=== PATIENT | male | born 1955 | race Caucasian/White ===

== ENCOUNTER 2020-04-10 16:37 | Emergency (ER) | payer BC, OTHER ==
--- OUTSIDE RECORDS SUMMARY | 2020-04-10 16:39 | XMS REPORT | Continuity of Care Document ---
:1955 Author Organization [facility] t Address [address] [place] [address] Dr. Gupta [address] [place] [address] Care Team Providers Name Role Phone Malik CARRANZA Attending Clinician Lab, Fam Pob I Attending Clinician Unavailable Problems This patient has no known problems. Allergies, Adverse Reactions, Alerts This patient has no known allergies or adverse reactions. Medications This patient has no known medications. Procedures This patient has no known procedures. Encounters Start End Encounter Admission Attending Care Care Encounter Source Date/Time Date/Time Type Type Clinicians Facility Department ID 2019-12-20 2019-12-20 Telephone Malik [facility] [id number] 00:00:00 00:00:00 [facility] [id number] [place] [id number] Professio [phone] [address] 2019-12-19 2019-12-19 Laboratory Lab, [facility] [id number] 09:25:55 09:45:55 Only Fam Pob I [facility] [id number] [place] [id number] Professio [phone] [address] Results This patient has no known results.
[2020-04-10] MEDS ORDERED: KETOROLAC 30 MG/ML INJ ONE (17:03)
[2020-04-10] MEDS ORDERED: TETANUS & DIPHTHERIA TOX,ADULT 0.5 ML VIAL ONE (17:03)
--- NOTE | 2020-04-10 17:13 | RAD REPORT ---
EXAM DESCRIPTION: CT - CTHCSPWOC - 04/10/2020 5:03 pm CLINICAL HISTORY: Trauma, head and neck injury. PAIN COMPARISON: No comparisons TECHNIQUE: Axial 5 mm thick images of the head were obtained. Axial 2 mm thick images of the cervical spine were obtained with sagittal and coronal reconstruction images generated and reviewed. All CT scans are performed using dose optimization technique as appropriate and may include automated exposure control or mA/KV adjustment according to patient size. FINDINGS: CT HEAD WITHOUT CONTRAST: No acute hemorrhage, hydrocephalus or extra-axial collection is identified.No areas of brain edema or midline shift. The paranasal sinuses and mastoids are clear.The calvarium is intact. CT CERVICAL SPINE WITHOUT CONTRAST: No fracture or subluxation.Mild lower cervical degenerative changes.No prevertebral soft tissues swel ling is identified. IMPRESSION: No acute intracranial or cervical spine findings.
--- NOTE | 2020-04-10 17:21 | RAD REPORT ---
EXAM DESCRIPTION: RAD - Ankle Left 3 View - 04/10/2020 5:14 pm CLINICAL HISTORY: PAIN COMPARISON: No comparisons FINDINGS: Mild soft tissue swelling is seen about the ankle. Mild arthritic changes are evident. No acute fracture or dislocation seen. Large calcaneal spurs.
--- NOTE | 2020-04-10 17:21 | RAD REPORT ---
EXAM DESCRIPTION: RAD - Shoulder Right 2 View - 04/10/2020 5:16 pm CLINICAL HISTORY: PAIN COMPARISON: No comparisons FINDINGS: Mild AC joint and glenohumeral joint arthritic changes are present. No acute fracture or d islocation seen. No aggressive marrow lesion.
--- NOTE | 2020-04-10 17:26 | EDPHYS ---
Physician Documentation [facility] Name: Luca Ayon Age: 65 yrs Sex: Male : 1955 Arrival Date: 04/10/2020 Time: 16:40 Bed 20 Private MD: Rai Goodrich H ED Physician Augustin Candelario HPI: 04/10 16:55 This 65 yrs old Male presents to ER via Wheelchair with complaints of Fall kb Injury. 16:55 Details of fall: The patient fell from a height, from a ladder, approximately 4 feet. kb Onset: The symptoms/episode began/occurred today. Associated injuries: The patient sustained injury to the head, hematoma, neck injury, pain, pain with movement, left lateral ankle, painful injury, swelling, anterior aspect of right shoulder, decreased range of motion, painful injury. Severity of symptoms: At their worst the symptoms were moderate, in the emergency department the symptoms are unchanged. The patient has not experienced similar symptoms in the past. The patient has not recently seen a physician. Pt reports he fell off of a ladder approx 4 feet. States he continued working for a while, but his shoulder was hard to move so he was concerned that it was dislocated. Reports he noticed a hematoma on his head and his neck was a little sore. Reports slight pain to left ankle as well. Historical: - Allergies: 16:49 Sulfa (Sulfonamide Antibiotics); jd3 - Home Meds: 16:49 Aciphex Oral [Active]; jd3 - PMHx: 16:49 GERD; jd3 - PSHx: 16:49 Cholecystectomy; jd3 - Immunization history:: Adult Immunizations up to date. - Social history:: Smoking status: Patient denies any tobacco usage or history of. ROS: 16:54 Constitutional: Negative for fever, chills, and weight loss, Eyes: Negative for injury, kb pain, redness, and discharge, ENT: Negative for injury, pain, and discharge, Cardiovascular: Negative for chest pain, palpitations, and edema, Respiratory: Negative for shortness of breath, cough, wheezing, and pleuritic chest pain, Abdomen/GI: Negative for abdominal pain, nausea, vomiting, diarrhea, and constipation, Neuro: Negative for headache, weakness, numbness, tingling, and seizure. 16:54 Neck: Positive for pain with movement, pain at rest. 16:54 MS/extremity: Positive for decreased range of motion, pain, of the anterior aspect of right shoulder. Exam: 16:49 Constitutional: This is a well developed, well nourished patient who is awake, alert, kb and in no acute distress. Eyes: Pupils equal round and reactive to light, extra-ocular motions intact. Lids and lashes normal. Conjunctiva and sclera are non-icteric and not injected. Cornea within normal limits. Periorbital areas with no swelling, redness, or edema. ENT: Nares patent. No nasal discharge, no septal abnormalities noted. Tympanic membranes are normal and external auditory canals are clear. Oropharynx with no redness, swelling, or masses, exudates, or evidence of obstruction, uvula midline. Mucous membranes moist. Chest/axilla: Normal chest wall appearance and motion. Nontender with no deformity. No lesions are appreciated. Cardiovascular: Regular rate and rhythm with a normal S1 and S2. No gallops, murmurs, or rubs. Normal PMI, no JVD. No pulse deficits. Respiratory: Lungs have equal breath sounds bilaterally, clear to auscultation and percussion. No rales, rhonchi or wheezes noted. No increased work of breathing, no retractions or nasal flaring. Abdomen/GI: Soft, non-tender, with normal bowel sounds. No distension or tympany. No guarding or rebound. No evidence of tenderness throughout. Back: No spinal tenderness. No costovertebral tenderness. Full range of motion. Neuro: Awake and alert, GCS 15, oriented to person, place, time, and situation. Cranial nerves II-XII grossly intact. Motor strength 5/5 in all extremities. Sensory grossly intact. Cerebellar exam normal. Normal gait. 16:49 Head/face: Noted is no obvious of injury or deformity except hematoma, that is mild, of the left side of the back of head. 16:49 Neck: External neck: is normal, C-spine: appears grossly normal. 16:49 Musculoskeletal/extremity: Extremities: grossly normal except: noted in the anterior aspect of right shoulder: decreased ROM, pain, noted in the left lateral ankle: pain, swelling, ROM: intact in all extremities, Circulation is intact in all extremities. Sensation intact. Weight bearing: able to fully bear weight. 16:49 Skin: injury, abrasion(s), small abrasion noted, moderate sized abrasion noted, of the lateral aspect of right calf and right knee. Vital Signs: 16:49 BP 129 / 91; Pulse 100; Resp 17 S; Temp 99.2(TE); Pulse Ox 100% on R/A; Weight 120.2 kg jd3 (R); Height 5 ft. 8 in. (172.72 cm) (R); Pain 6/10; 17:22 BP 133 / 81; Pulse 93; Resp 16; Pulse Ox 98% ; bp 16:49 Body Mass Index 40.29 (120.20 kg, 172.72 cm) jd3 MDM: 16:45 Patient medically screened. kb 16:49 Data reviewed: vital signs, nurses notes. Data interpreted: Pulse oximetry: on room air kb is 100 %. Interpretation: normal. 17:24 Counseling: I had a detailed discussion with the patient and/or guardian regarding: the kb historical points, exam findings, and any diagnostic results supporting the discharge/admit diagnosis, radiology results, the need for outpatient follow up, a family practitioner, to return to the emergency department if symptoms worsen or persist or if there are any questions or concerns that arise at home. 04/10 16:49 Order name: CT Head C Spine; Complete Time: 17:15 kb 04/10 16:49 Order name: Ankle Left 3 View XRAY; Complete Time: 17:23 kb 04/10 16:49 Order name: Shoulder Right (2 View) XRAY; Complete Time: 17:23 kb Administered Medications: 16:54 Drug: Tetanus-Diphtheria Toxoid Adult 0.5 ml {Die Operator: SaniHandle Pasteur. Exp: bp 08/13/2022. Lot #: [id number]. } Route: IM; Site: right vastus lateralis; 17:38 Follow up: Response: No adverse reaction bp 16:54 Drug: TORadol 30 mg Route: IM; Site: right vastus lateralis; bp 17:38 Follow up: Response: Pain is decreased bp Disposition: 04/10/20 17:25 Discharged to Home. Impression: Pain in right shoulder, Pain in left ankle and joints of left foot, Fall on and from ladder, Superficial injury of head. - Condition is Stable. - Discharge Instructions: Musculoskeletal Pain, Shoulder Pain, Chet-jy-Lbnm, Head Injury, Adult, Tomd-cd-Srcn. - Prescriptions for Ibuprofen 800 mg Oral Tablet - take 1 tablet by ORAL route every 8 hours As needed take with food; 30 tablet. Cyclobenzaprine 10 mg Oral Tablet - take 1 tablet by ORAL route every 8 hours As needed; 21 tablet. - Medication Reconciliation Form, Thank You Letter, Antibiotic Education, Prescription Opioid Use form. - Follow up: Emergency Department; When: As needed; Reason: Worsening of condition. Follow up: Rai Goodrich DO; When: 2 - 3 days; Reason: Recheck today's complaints, Continuance of care, Re-evaluation by your physician. Addendum: 04/12/2020 21:45 Co-signature as Attending Physician, Augustin Candelario MD. r n Signatures: Dispatcher [employer] EDMS Abby Mena, ORNAMENTAL PLASTER STICKER-C ORNAMENTAL PLASTER STICKER-Ckb Augustin Candelario MD MD rn Davies, Jonathon, RN RN Toni Wright RN RN bp Corrections: (The following items were deleted from the chart) 04/10 17:38 17:25 04/10/2020 17:25 Discharged to Home. Impression: Pain in right shoulder; Pain in bp left ankle and joints of left foot; Fall on and from ladder; Superficial injury of head. Condition is Stable. Forms are Medication Reconciliation Form, Thank You Letter, Antibiotic Education, Prescription Opioid Use. Follow up: Emergency Department; When: As needed; Reason: Worsening of condition. Follow up: aRi Goodrich; When: 2 - 3 days; Reason: Recheck today's complaints, Continuance of care, Re-evaluation by your physician. kb
--- NOTE | 2020-04-10 17:26 | ER ---
Nurse's Notes [facility] Name: Luca Ayon Age: 65 yrs Sex: Male : 1955 Arrival Date: 04/10/2020 Time: 16:40 Bed 20 Private MD: Rai Goodrich H Diagnosis: Pain in right shoulder;Pain in left ankle and joints of left foot;Fall on and from ladder;Superficial injury of head Presentation: 04/10 16:47 Chief complaint: Patient states: "I fell off of a ladder, only about 4-5 feet and jd3 scraped up my right leg. I also think I popped my right shoulder out of socket. I hit my head, but I did not loose consciousness. my left ankle and my neck is hurting me as well.". Coronavirus screen: At this time, the client does not indicate any symptoms associated with coronavirus-19. Ebola Screen: Patient negative for fever greater than or equal to 101.5 degrees Fahrenheit, and additional compatible Ebola Virus Disease symptoms. Initial Sepsis Screen: Does the patient meet any 2 criteria? No. Patient's initial sepsis screen is negative. Does the patient have a suspected source of infection? No. Patient's initial sepsis screen is negative. Risk Assessment: Do you want to hurt yourself or someone else? Patient reports no desire to harm self or others. Onset of symptoms was April 10, 2020. 16:47 Method Of Arrival: Wheelchair jd3 16:47 Acuity: HAIR 3 jd3 Triage Assessment: 16:50 General: Appears in no apparent distress. uncomfortable, obese, Behavior is bp cooperative, appropriate for age, anxious. Pain: Complains of pain in left leg and right arm and right leg and right knee and left side of the back of head. EENT: No deficits noted. Neuro: Level of Consciousness is awake, alert, obeys commands, Oriented to Appropriate for age. Cardiovascular: No deficits noted. Respiratory: No deficits noted. GI: No signs and/or symptoms were reported involving the gastrointestinal system. : No signs and/or symptoms were reported regarding the genitourinary system. Derm: No deficits noted. Musculoskeletal: Reports pain in left leg and right arm and right leg and right knee and left side of the back of head. Injury Description: Abrasion sustained to left leg and right leg. Historical: - Allergies: 16:49 Sulfa (Sulfonamide Antibiotics); jd3 - Home Meds: 16:49 Aciphex Oral [Active]; jd3 - PMHx: 16:49 GERD; jd3 - PSHx: 16:49 Cholecystectomy; jd3 - Immunization history:: Adult Immunizations up to date. - Social history:: Smoking status: Patient denies any tobacco usage or history of. Screenin:50 Abuse screen: Denies threats or abuse. Denies injuries from another. Nutritional bp screening: No deficits noted. Tuberculosis screening: No symptoms or risk factors identified. Fall Risk None identified. Assessment: 16:50 General: SEE TRIAGE NOTE. bp 16:57 Reassessment: PT TO RADIOLOGY. bp 17:21 Reassessment: Patient appears in no apparent distress at this time. No changes from bp previously documented assessment. Patient and/or family updated on plan of care and expected duration. Pain level reassessed. Patient is alert, oriented x 3, equal unlabored respirations, skin warm/dry/pink. PT RETURNED FROM [facility]. 17:37 Reassessment: PT D/C HOME AMBULATORY, DX WITH SHOULDER PAIN S/P FALL. bp Vital Signs: 16:49 BP 129 / 91; Pulse 100; Resp 17 S; Temp 99.2(TE); Pulse Ox 100% on R/A; Weight 120.2 kg jd3 (R); Height 5 ft. 8 in. (172.72 cm) (R); Pain 6/10; 17:22 BP 133 / 81; Pulse 93; Resp 16; Pulse Ox 98% ; bp 16:49 Body Mass Index 40.29 (120.20 kg, 172.72 cm) jd3 ED Course: 16:40 Patient arrived in ED. ag5 16:40 Rai Goodrich DO is Private Physician. ag5 16:42 Toni Moseley, BRIAN is Primary Nurse. bp 16:45 Abby Mena FNP-C is PHCP. kb 16:45 Augustin Candelario MD is Attending Physician. kb 16:48 Triage completed. jd3 16:50 Arm band placed on. jd3 16:50 Patient has correct armband on for positive identification. Bed in low position. Call bp light in reach. Side rails up X2. 17:03 CT Head C Spine In Process Unspecified. EDMS 17:14 Ankle Left 3 View XRAY In Process Unspecified. EDMS 17:15 Shoulder Right (2 View) XRAY In Process Unspecified. EDMS 17:24 Rai Goodrich DO is Referral Physician. kb 17:37 No provider procedures requiring assistance completed. Patient did not have IV access bp during this emergency room visit. Administered Medications: 16:54 Drug: Tetanus-Diphtheria Toxoid Adult 0.5 ml {Lehr Loader: MENABANQER Pasteur. Exp: bp 08/13/2022. Lot #: [id number]. } Route: IM; Site: right vastus lateralis; 17:38 Follow up: Response: No adverse reaction bp 16:54 Drug: TORadol 30 mg Route: IM; Site: right vastus lateralis; bp 17:38 Follow up: Response: Pain is decreased bp Outcome: 17:25 Discharge ordered by MD. kb 17:37 Discharged to home ambulatory. bp 17:37 Condition: stable 17:37 Discharge instructions given to patient, Instructed on discharge instructions, follow up and referral plans. medication usage, Demonstrated understanding of instructions, follow-up care, medications, Prescriptions given X 2. 17:38 Patient left the ED. bp Signatures: Dispatcher [employer] EDMS Abby Mena, CELERY WRAPPER-C CELERY WRAPPER-Ciro Dominguez RN RN jd3 Peltier, Brian, RN RN Neel Mishra ag5 Corrections: (The following items were deleted from the chart) 16:51 16:47 Chief complaint: Patient states: "I fell off of a ladder and scraped up my right jd3 leg. I also think I popped my right shoulder out of socket. I hit my head, but I did not loose consciousness. my left ankle and my neck is hurting me as well." jd3
[2020-04-10 17:46] VITALS: TEMP 99.2
[2020-04-10 17:48] VITALS: BP 133/81; O2SAT 98
== END 2020-04-10 17:38 | disposition home or self-care (01) ==
LOC: ER 16:37
DX: M25.511 Pain in right shoulder (principal); S00.93XA Contusion of unspecified part of head, initial encounter; M25.572 Pain in left ankle and joints of left foot; W11.XXXA Fall on and from ladder, initial encounter; Y93.9 Activity, unspecified; Y92.9 Unspecified place or not applicable; Z23 Encounter for immunization; Z88.2 Allergy status to sulfonamides; K21.9 Gastro-esophageal reflux disease without esophagitis
CPT/HCPCS: 70450; 72125; 90471; 90714; 96372; 99283

== ENCOUNTER 2022-05-01 16:34 | Inpatient (IN) | payer BC, OTHER ==
--- OUTSIDE RECORDS SUMMARY | 2022-05-01 16:37 | XMS REPORT | Continuity of Care Document ---
:1955 Author Organization [facility] t Address [address] [place] [address] Care Team Providers Name Role Phone Lab, Adc Fam Pob I Attending Clinician Unavailable Teena ALUMINUM SIDING INSTALLERJudy Attending Clinician JUDY DICKINSON Attending Clinician Unavailable Malik ALUMINUM SIDING INSTALLERIvelisse Attending Clinician Ebmarisol ALUMINUM SIDING INSTALLERTroy Attending Clinician TROY HARDING Attending Clinician Unavailable Payers Payer Name Policy Type Policy Number Effective Date Expiration Date S ource Problems This patient has no known problems. Allergies, Adverse Reactions, Alerts Allergy Allergy Status Severity Reaction(s) Onset Inactive Treating Comm ents Source Name Type Date Date Clinician NO KNOWN Drug Active [facility] ALLERGIE Class ity of S [facility] Social History Social Habit Start Date Stop Date Quantity Comments Source Exposure to Yes [facility] SARS-CoV-2 (event) Medica l Branch Sex Assigned At [birth year] [facility] 00:00:00 00:00:00 [facility] Smoking Status Start Date Stop Date Source Unknown if ever smoked [facility] Medications This patient has no known medications. Procedures This patient has no known procedures. Encounters Start End Encounter Admission Attending Care Care Encounter Source Date/Time Date/Time Type Type Clinicians Facility Department ID 2021-07-19 Outpatient [facility] [id number] Common 14:31:02 [facility] 2021-01-23 2021-01-23 Laboratory Lab, [facility] Fam Pob I [facility] [id number] [facility] 09:54:24 10:14:24 Only u[facility]dy [facility] [id number] [facility] [place] [id number] [facility] as Professio [phone] [address] 2021-01-23 2021-01-23 Outpatient R [facility] [id number] Univers 10:00:00 10:00:00 JUDY mueller o f [facility] 2019-12-20 2019-12-20 Telephone [facility] [id number] [facility] 00:00:00 00:00:00 [facility] [id number] [facility] [place] [id number] [facility] Professio [phone] [address] 2019-12-20 2019-12-20 [place] [facility] [id number] 00:00:00 00:00:00 [facility] [id number] [place] [id number] Professio [phone] [place] [address] [address] 2019-12-19 2019-12-19 Laboratory Lab, [facility] Fam Pob I [facility] [id number] [facility] 09:25:55 09:45:55 Only [facility] [id number] [facility] [place] [id number] И[facility]ан as Professio [phone] [address] 2019-12-19 2019-12-19 Laboratory Lab, [facility] [id number] 09:25:55 09:45:55 Only Fam Pob I Health [id number] [place] [id number] Professio [phone] [place] [address] [address] 2019-12-19 2019-12-19 Outpatient [facility] [id number] Univers 09:40:00 09:40:00 RANIA ity [facility] Results This patient has no known results.
[2022-05-01] MEDS ORDERED: FAMOTIDINE 20 MG/2 ML VIAL IV ONE (17:18)
[2022-05-01] MEDS ORDERED: NA CHLORIDE 0.9% 500 ML ONE ×2 (17:18→19:32)
[2022-05-01] MEDS ORDERED: ONDANSETRON 4 MG/2 ML VIAL ONE (17:18)
[2022-05-01 17:35] LABS: Absolute Lymphocytes (CBC) 0.7 K/uL (0.7-4.9); Hematocrit 42.3 % (39.6-49.0); Lymphocytes % 4.7 % (15.3-44.8); MCV 78.2 fL (80-100); MPV 8.3 fL (7.6-11.3); Protime INR 1.35; RBC Red Blood Cell Count 5.41 M/uL (4.33-5.43)
[2022-05-01 17:47] LABS: Albumin 3.5 g/dL (3.4-5.0); Bilirubin Direct 0.2 mg/dL (0-0.2); Bilirubin Total 0.8 mg/dL (0.2-1.0); Magnesium 3.3 mg/dL (1.8-2.4); Potassium 3.4 mmol/L (3.5-5.1); Protein, Total 8.3 g/dL (6.4-8.2)
[2022-05-01 18:00] LABS: Urine Blood Trace-lysed (Negative); Urine Glucose Negative (Negative); Urine Protein 2+ (Negative); Urine Specific Gravity >=1.030 (1.005-1.030); Urine pH 5.5 (5.0-7.0)
--- NOTE | 2022-05-01 18:04 | RAD REPORT ---
EXAM DESCRIPTION: RAD - Chest Single View - 05/01/2022 5:40 pm CLINICAL HISTORY: CHEST PAIN Chest pain. COMPARISON: No comparisons FINDINGS: Portable technique limits examination quality. Mild asymmetric pulmonary opacities are present, greater in the left lung and left lung base. This ma y represent asymmetric pulmonary edema or developing left-sided infection/pneumonia. The heart is nor mal in size. No displaced fractures.
[2022-05-01 18:10] LABS: Urine Bacteria <20 /HPF (<20); Urine Granular Casts >20 /LPF (None Seen); Urine Mucus 2+ /HPF (None Seen)
[2022-05-01 18:12] LABS: SARS-COV-2 RT PCR NEGATIVE (NEGATIVE)
--- NOTE | 2022-05-01 18:43 | RAD REPORT ---
EXAM DESCRIPTION: CT - Chest Abd Pelvis Wo Con - 05/01/2022 6:33 pm CLINICAL HISTORY: Chest and abdomen pain. vomiting COMPARISON: No comparisons TECHNIQUE: A limited noncontrast study was performed. All CT scans are performed using dose optimization technique as appropriate and may include automated exposure control or mA/KV adjustment according to patient size. FINDINGS: Bilateral mild ground-glass and alveolar lung opacities are seen, greater on the left.No p leural or pericardial effusion.No intrathoracic adenopathy.Postsurgical changes affect the stomach. C holecystectomy. The liver, spleen, pancreas, adrenal glands and kidneys are within normal limits. No bowel obstruction, free air, free fluid or abscess. Normal appendix. Sigmoid diverticulosis coli i s present without diverticulitis. No pathologic lymphadenopathy in the abdomen or pelvis. No worrisome osseous finding. IMPRESSION: Alveolar lung opacities are present both lungs, greatest in the left lower lobe suspicio us for infection/pneumonia.
--- NOTE | 2022-05-01 18:55 | ER ---
Nurse's Notes [facility] Name: Luca Ayon Age: 67 yrs Sex: Male : 1955 Arrival Date: 05/01/2022 Time: 16:38 Bed 27 Private MD: Rai Goodrich H Diagnosis: Other pneumonia, unspecified organism;Other injury of unspecified kidney, initial encounter;Sepsis, unspecified organism;Nausea with vomiting, unspecified Presentation: 05/01 16:40 Chief complaint: Patient states: been vomiting since Saturday, and SOB. Saw Keanu today [facility] and was told to come on it. Coronavirus screen: Vaccine status: Patient reports receiving the 2nd dose of the covid vaccine. Client denies travel out of the [place] in the last 14 days. Ebola Screen: Patient negative for fever greater than or equal to 101.5 degrees Fahrenheit, and additional compatible Ebola Virus Disease symptoms Patient denies exposure to infectious person. Patient denies travel to an Ebola-affected area in the 21 days before illness onset. Initial Sepsis Screen: Does the patient meet any 2 criteria? No. Patient's initial sepsis screen is negative. Does the patient have a suspected source of infection? No. Patient's initial sepsis screen is negative. Risk Assessment: Do you want to hurt yourself or someone else? Patient reports no desire to harm self or others. 16:40 Method Of Arrival: Ambulatory [facility] 16:40 Acuity: HAIR 3 [facility] 16:54 Onset of symptoms is unknown. tp1 Triage Assessment: 16:42 General: Appears uncomfortable, obese, well groomed, well developed, Behavior is calm, jh5 cooperative, appropriate for age. Pain: Complains of pain in abdomen. Respiratory: Reports shortness of breath air hunger labored breathing Onset: The symptoms/episode began/occurred gradually, the patient has mild shortness of breath. Historical: - Allergies: 16:42 Sulfa (Sulfonamide Antibiotics); jh5 - PMHx: 16:42 GERD; 5 - Immunization history:: Adult Immunizations up to date. - Social history:: Smoking status: Patient denies any tobacco usage or history of. Screenin:54 Abuse screen: Denies threats or abuse. Denies injuries from another. Nutritional tp1 screening: No deficits noted. Tuberculosis screening: No symptoms or risk factors identified. Fall Risk None identified. Assessment: 16:52 General: Appears in no apparent distress. comfortable, Behavior is calm, cooperative. tp1 Pain: Complains of pain in abdomen and chest Pain does not radiate. Pain currently is 5 out of 10 on a pain scale. Quality of pain is described as aching. Neuro: Level of Consciousness is awake, alert, obeys commands, Oriented to person, place, time, situation. Cardiovascular: Patient's skin is warm and dry. Respiratory: Airway is patent Respiratory effort is even, unlabored. Respiratory: Reports cough that is. GI: Abdomen is obese, Abd is soft and non tender Reports nausea, vomiting, Patient currently denies diarrhea. : No signs and/or symptoms were reported regarding the genitourinary system. EENT: No signs and/or symptoms were reported regarding the EENT system. Derm: Skin is pink, warm \T\ dry. Musculoskeletal: Circulation, motion, and sensation intact. 17:50 Reassessment: Patient appears in no apparent distress at this time. No changes from tp1 previously documented assessment. Patient and/or family updated on plan of care and expected duration. Pain level reassessed. Patient is alert, oriented x 3, equal unlabored respirations, skin warm/dry/pink. no change in pain. 17:50 Cardiovascular: Rhythm is sinus bradycardia. tp1 19:15 Reassessment: Patient appears in no apparent distress at this time. No changes from iw previously documented assessment. Patient is alert, oriented x 3, equal unlabored respirations, skin warm/dry/pink. Patient denies pain at this time. 20:27 Reassessment: Patient appears in no apparent distress at this time. No changes from iw previously documented assessment. Patient and/or family updated on plan of care and expected duration. Pain level reassessed. Patient is alert, oriented x 3, equal unlabored respirations, skin warm/dry/pink. Patient denies pain at this time. 20:31 Reassessment: attempted to give report. tp1 21:18 Reassessment: report given to Jamal TORRES. tp1 Vital Signs: 16:40 BP 117 / 83; Pulse 128; Resp 22; Temp 97.9; Pulse Ox 97% ; Weight 90.72 kg; Height 5 jh5 ft. 8 in. (172.72 cm); 17:50 BP 156 / 85; Pulse 95; Resp 20; Pulse Ox 97% on R/A; tp1 18:10 BP 127 / 68; Pulse 101; Resp 16; Pulse Ox 98% on R/A; iw 19:36 BP 140 / 69; Pulse 92; Resp 16; Pulse Ox 100% on R/A; iw 20:29 BP 147 / 78; Pulse 74; Resp 16; Pulse Ox 98% on R/A; iw 16:40 Body Mass Index 30.41 (90.72 kg, 172.72 cm) [facility] ED Course: 16:38 Patient arrived in ED. rg4 16:38 Rai Goodrich DO is Private Physician. rg4 16:39 Natalio Mejia PA is PHCP. cp 16:39 Augustin Candelario MD is Attending Physician. cp 16:42 Triage completed. 5 16:42 Arm band placed on right wrist. 5 16:46 Elli Mock, BRIAN is Primary Nurse. tp1 16:54 Patient has correct armband on for positive identification. Bed in low position. Call tp1 light in reach. 17:15 COVID swab sent to lab. Flu and/or RSV swab sent to lab. Inserted saline lock: 20 gauge tp1 in right antecubital area, using aseptic technique. Blood collected. 17:43 XRAY Chest (1 view) In Process Unspecified. EDMS 18:35 CT Chest Abdomen Pelvis W/O Contrast In Process Unspecified. EDMS 18:53 Thad Jones MD is Hospitalizing Provider. cp 18:55 Franky Candelario MD is Hospitalizing Provider. cp 20:27 No provider procedures requiring assistance completed. Patient admitted, IV remains in iw place. Administered Medications: 17:24 Drug: Zofran (Ondansetron) 4 mg Route: IVP; Site: right antecubital; tp1 19:41 Follow up: Response: Nausea is decreased iw 17:26 Drug: Pepcid (famotidine) 20 mg Route: IVP; Site: right antecubital; tp1 19:41 Follow up: Response: Pain is decreased iw 17:27 Drug: NS 0.9% 500 ml Route: IV; Rate: bolus; Site: right antecubital; tp1 18:19 Follow up: IV Status: Completed infusion; IV Intake: 500ml tp1 19:41 Drug: Rocephin - (cefTRIAXone) 1 grams Route: IVPB; Infused Over: 30 mins; Site: right iw antecubital; 20:10 Follow up: Response: No adverse reaction; IV Status: Completed infusion; IV Intake: 50mliw 19:41 Drug: NS 0.9% 500 ml Route: IV; Rate: bolus; Site: right antecubital; iw 20:37 Follow up: IV Status: Completed infusion; IV Intake: 500ml tp1 20:10 Drug: Zithromax (azithromycin) 500 mg Route: IVPB; Infused Over: 1 hrs; Site: right iw antecubital; 21:20 Follow up: Response: No adverse reaction; IV Status: Completed infusion; IV Intake: tp1 250ml 20:37 Drug: NS 0.9% 1000 ml Route: IV; Rate: 100 ml/hr; Site: right antecubital; tp1 21:20 Follow up: IV Status: Infusion continued upon admission tp1 Medication: 16:54 VIS not applicable for this client. tp1 Intake: 18:19 IV: 500ml; Total: 500ml. tp1 20:10 IV: 50ml; Total: 550ml. iw 20:37 IV: 500ml; Total: 1050ml. tp1 21:20 IV: 250ml; Total: 1300ml. tp1 Outcome: 18:55 Decision to Hospitalize by Provider. cp 21:40 Admitted to Med/surg accompanied by nurse, via wheelchair, room 232, with chart. iw 21:40 Condition: good 21:40 Discharge instructions given to patient, Instructed on the need for admit, Demonstrated understanding of instructions. 21:41 Patient left the ED. iw Signatures: Dispatcher [employer] EDRosy Tolentino RN RN Natalio Gardner PA PA cp Garcia, Rubi rg4 Margaux Grossman RN RN jh5 Elli Mock RN RN tp1
--- NOTE | 2022-05-01 18:55 | EDPHYS ---
Physician Documentation [facility] Name: Luca Ayon Age: 67 yrs Sex: Male : 1955 Arrival Date: 05/01/2022 Time: 16:38 Bed 27 Private MD: Rai Goodrich H ED Physician Augustin Candelario HPI: 05/01 17:00 This 67 yrs old Male presents to ER via Ambulatory with complaints of Breathing cp Difficulty. 17:00 The patient has shortness of breath at rest. Onset: The symptoms/episode began/occurred cp today. The patient presents to the emergency department with nausea, that is mild, vomiting, that is continuous, described as bilious. Onset: The symptoms/episode began/occurred 3 day(s) ago. 17:00 Possible causes: unknown. cp Historical: - Allergies: 16:42 Sulfa (Sulfonamide Antibiotics); jh5 - PMHx: 16:42 GERD; jh5 - Immunization history:: Adult Immunizations up to date. - Social history:: Smoking status: Patient denies any tobacco usage or history of. ROS: 17:05 Constitutional: Negative for fever. cp 17:05 Cardiovascular: Negative for chest pain, edema, palpitations. cp 17:05 Eyes: Negative for injury, pain, redness, and discharge. cp 17:05 ENT: Negative for drainage from ear(s), ear pain, difficulty swallowing, difficulty handling secretions. 17:05 Respiratory: Positive for cough, shortness of breath, Negative for wheezing. 17:05 Abdomen/GI: Positive for nausea and vomiting, Negative for abdominal pain, diarrhea, constipation, anorexia, black/tarry stool, rectal bleeding. 17:05 : Negative for urinary symptoms. 17:05 Neuro: Negative for altered mental status, dizziness, headache, weakness. 17:05 All other systems are negative. Exam: 17:10 ECG was reviewed by the Attending Physician. cp 17:12 Constitutional: The patient appears in no acute distress, alert, awake, cp non-diaphoretic, non-toxic, well developed, well nourished. 17:12 Head/Face: Normocephalic, atraumatic. cp 17:12 Eyes: Periorbital structures: appear normal, Conjunctiva: normal, no exudate, no injection, Sclera: no appreciated abnormality, Lids and lashes: appear normal, bilaterally. 17:12 ENT: External ear(s): are unremarkable, Nose: is normal, Mouth: Lips: moist, Oral mucosa: pink and intact, moist, Posterior pharynx: Airway: no evidence of obstruction, patent. 17:12 Neck: ROM/movement: is normal, is supple, without pain, no range of motions limitations. 17:12 Chest/axilla: Inspection: normal. 17:12 Cardiovascular: Rate: tachycardic, Rhythm: regular, Edema: is not appreciated, JVD: is not appreciated. 17:12 Respiratory: the patient does not display signs of respiratory distress, Respirations: normal, no use of accessory muscles, no retractions, labored breathing, is not present, Breath sounds: decreased breath sounds, are not appreciated, stridor, is not appreciated, wheezing: is not appreciated. 17:12 Abdomen/GI: Inspection: abdomen appears normal, Palpation: abdomen is soft and non-tender, in all quadrants. 17:12 Back: pain, is absent, ROM is normal. 17:12 Skin: cellulitis, is not appreciated, no rash present. 17:12 Neuro: Orientation: to person, place \\T\\ time. Mentation: is normal, Motor: moves all fours, strength is normal, Sensation: is normal. Vital Signs: 16:40 BP 117 / 83; Pulse 128; Resp 22; Temp 97.9; Pulse Ox 97% ; Weight 90.72 kg; Height 5 jh5 ft. 8 in. (172.72 cm); 17:50 BP 156 / 85; Pulse 95; Resp 20; Pulse Ox 97% on R/A; tp1 18:10 BP 127 / 68; Pulse 101; Resp 16; Pulse Ox 98% on R/A; iw 19:36 BP 140 / 69; Pulse 92; Resp 16; Pulse Ox 100% on R/A; iw 20:29 BP 147 / 78; Pulse 74; Resp 16; Pulse Ox 98% on R/A; iw 16:40 Body Mass Index 30.41 (90.72 kg, 172.72 cm) jh5 MDM: 16:45 Patient medically screened. cp 17:00 Differential diagnosis: gastritis, cholecystitis, pancreatitis, appendicitis, viral cp gastroenteritis, gastroenteritis, pneumonia, pulmonary edema, Sepsis. 18:55 Data reviewed: vital signs, nurses notes, lab test result(s), EKG, radiologic studies, cp CT scan, plain films. 18:55 Test interpretation: by ED physician or midlevel provider: ECG, plain radiologic cp studies. Counseling: I had a detailed discussion with the patient and/or guardian regarding: the historical points, exam findings, and any diagnostic results supporting the discharge/admit diagnosis, lab results, radiology results, the need for further work-up and treatment in the hospital. Response to treatment: the patient's symptoms have mildly improved after treatment, and as a result, I will admit patient. 19:00 Physician consultation: Bradford FRYE was contacted at 18:50, regarding admission, cp to the telemetry unit. patient's condition, and will see patient in ED, shortly. 05/01 16:57 Order name: Basic Metabolic Panel; Complete Time: 18:16 05/01 18:16 Interpretation: Normal except: NA 149; K 3.4; CL 114; GLUC 124; BUN 74; CRE 1.93; GFR cp 38. 05/01 16:57 Order name: CBC with Diff; Complete Time: 18:16 05/01 18:17 Interpretation: Normal except: WBC 15.10; HGB 13.3; MCV 78.2; MCH 24.6; MCHC 31.4; RDW cp 16.2; ILIANA% 90.3; LYM% 4.7; NEUT A 13.6. 05/01 16:57 Order name: LFT's; Complete Time: 18:16 05/01 16:57 Order name: Magnesium; Complete Time: 18:16 05/01 16:57 Order name: NT PRO-BNP; Complete Time: 18:16 05/01 16:57 Order name: PT-INR; Complete Time: 18:16 05/01 16:57 Order name: Troponin HS; Complete Time: 18:16 05/01 16:57 Order name: Lipase; Complete Time: 18:16 05/01 16:57 Order name: COVID-19/FLU A+B/RSV (Document "Date of Onset" if Symptomatic); Complete cp Time: 18:16 05/01 16:57 Order name: Urine Microscopic Only; Complete Time: 18:16 05/01 18:00 Order name: Urine Dipstick-Ancillary; Complete Time: 18:16 EDMS 05/01 18:19 Order name: Lactate cp 05/01 18:19 Order name: Blood Culture Adult (2) 05/01 18:19 Order name: Procalcitonin; Complete Time: 21:06 05/01 21:40 Interpretation: Abnormal: Procalcitonin 7.66. 05/01 16:57 Order name: XRAY Chest (1 view); Complete Time: 18:16 05/01 16:57 Order name: EKG; Complete Time: 16:58 05/01 16:57 Order name: Cardiac monitoring; Complete Time: 17:15 05/01 16:57 Order name: EKG - Nurse/Tech; Complete Time: 17:15 05/01 16:57 Order name: IV Saline Lock; Complete Time: 17:15 05/01 16:57 Order name: Labs collected and sent; Complete Time: 17:15 05/01 16:57 Order name: O2 Per Protocol; Complete Time: 16:59 05/01 16:57 Order name: O2 Sat Monitoring; Complete Time: 16:59 05/01 18:19 Order name: CT Chest Abdomen Pelvis W/O Contrast; Complete Time: 18:45 05/01 18:45 Interpretation: Report reviewed. 05/01 16:57 Order name: Urine Dipstick-Ancillary (obtain specimen); Complete Time: 18:20 cp EC:10 Rate is 108 beats/min. Rhythm is regular. NE interval is normal. QRS interval is cp normal. QT interval is normal. T waves are Inverted in leads I, II, aVL. Interpreted by me. Reviewed by me. Administered Medications: 17:24 Drug: Zofran (Ondansetron) 4 mg Route: IVP; Site: right antecubital; tp1 19:41 Follow up: Response: Nausea is decreased iw 17:26 Drug: Pepcid (famotidine) 20 mg Route: IVP; Site: right antecubital; tp1 19:41 Follow up: Response: Pain is decreased iw 17:27 Drug: NS 0.9% 500 ml Route: IV; Rate: bolus; Site: right antecubital; tp1 18:19 Follow up: IV Status: Completed infusion; IV Intake: 500ml tp1 19:41 Drug: Rocephin - (cefTRIAXone) 1 grams Route: IVPB; Infused Over: 30 mins; Site: right iw antecubital; 20:10 Follow up: Response: No adverse reaction; IV Status: Completed infusion; IV Intake: 50mliw 19:41 Drug: NS 0.9% 500 ml Route: IV; Rate: bolus; Site: right antecubital; iw 20:37 Follow up: IV Status: Completed infusion; IV Intake: 500ml tp1 20:10 Drug: Zithromax (azithromycin) 500 mg Route: IVPB; Infused Over: 1 hrs; Site: right iw antecubital; 21:20 Follow up: Response: No adverse reaction; IV Status: Completed infusion; IV Intake: tp1 250ml 20:37 Drug: NS 0.9% 1000 ml Route: IV; Rate: 100 ml/hr; Site: right antecubital; tp1 21:20 Follow up: IV Status: Infusion continued upon admission tp1 Disposition Summary: 05/01/22 18:55 Hospitalization Ordered Hospitalization Status: Inpatient Admission cp Location: Telemetry/[facility] (Inpatient) cp Condition: Stable cp Problem: new cp Symptoms: have improved cp Bed/Room Type: Standard cp Provider: Franky Candelario(05/01/22 18:56) cp Room Assignment: [facility](05/01/22 19:56) mw Diagnosis - Other pneumonia, unspecified organism cp - Other injury of unspecified kidney, initial encounter cp - Sepsis, unspecified organism cp - Nausea with vomiting, unspecified cp Forms: - Medication Reconciliation Form cp - SBAR form cp Addendum: 05/03/2022 07:38 Co-signature as Attending Physician, Augustin Candelario MD. r n Signatures: Dispatcher [employer] EDKS Jenna Marie RN RN mw Williams, Irene, RN RN Augustin Candelario MD MD rn Attema, Lee, DATA CENTER MANAGER-C DATA CENTER MANAGER-Cla1 Natalio Mejia PA PA cp Margaux Grossman RN RN jh5 Elli Mock RN RN tp1 Corrections: (The following items were deleted from the chart) 05/01 18:21 18:21 This 67 yrs old Male presents to ER via Ambulatory with complaints of Breathing cp Difficulty. cp 18:56 18:55 Thad Jones cp cp 19:56 18:55 cp mw
[2022-05-01] MEDS ORDERED: CEFTRIAXONE 1000 MG/VIAL ONE (19:31)
[2022-05-01] MEDS ORDERED: AZITHROMYCIN 500 MG INJ IVPB ONE (19:31)
[2022-05-01] MEDS ORDERED: NA CHLORIDE 0.9% 50 ML IV ONE (19:32)
[2022-05-01] MEDS ORDERED: NA CHLORIDE 0.9% 250 ML ONE (19:32)
[2022-05-01] MEDS ORDERED: NA CHLORIDE 0.9% 1,000 ML ONE (19:32)
--- NOTE | 2022-05-01 21:17 | P.HP ---
Certification for Inpatient Patient admitted to: Inpatient With expected LOS: >2 Midnights Patient will require the following post-hospital care: None Practitioner: I am a practitioner with admitting privileges, knowledge of patient current condition, hospital course, and medical plan of care. Services: Services provided to patient in accordance with Admission requirements found in Title 42 Section 412.3 of the Code of Federal Regulations Patient History Date of Service: 05/01/22 Reason for admission: Pneumonia, sepsis, SUSHANT History of Present Illness: 67-year-old male with history of GERD presents emergency department for vomiting, shortness of breath. Patient reports he started having episodes of vomiting on Saturday, today notes he is feeling quite short of breath. He was evaluated here in the emergency department his labs were significant for leukocytosis, acute kidney injury, elevated procalcitonin chest x-ray showed mild asymmetric pulmonary opacities present greater in the left lung and left lung base which may represent asymmetric pulmonary edema or developing left side infection/pneumonia heart is normal in size. No displaced fractures. CT chest abdomen pelvis without contrast was also obtained which revealed alveolar lung opacities present both lungs greater in the left lower lobe suspicious for infection/pneumonia. Patient meets criteria for sepsis given tachycardia, tachypnea, leukocytosis plus source of infection identified with pneumonia. Acute kidney injury present but creatinine is less than 2 does not meet for severe sepsis, lactic acid pending has been sent to lab but currently machine is down for the next 30 minutes. We will follow-up with lactate level. Will admit for for patient for further evaluation and management of sepsis, pneumonia, acute kidney injury. 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 moist/pink, EOMI, Sclerae nonicteric Neck: Supple, 2+ carotid pulse no bruit, No LAD, Without JVD or thyroid abnormality Respiratory: Normal air movement, Diminished Cardiovascular: No edema, Regular rate/rhythm, Normal S1 S2 Capillary refill: <2 Seconds Gastrointestinal: Normal bowel sounds, No tenderness Musculoskeletal: No tenderness Integumentary: No rashes Neurological: Normal speech, Normal strength at 5/5 x4 extr, Normal tone, Normal affect - Studies Laboratory Data (last 24 hrs) 05/01/22 17:13: PT 14.8 H, INR 1.35 05/01/22 17:13: WBC 15.10 H, Hgb 13.3 L, Hct 42.3, Plt Count 380 05/01/22 17:13: Sodium 149 H, Potassium 3.4 L, BUN 74 H, Creatinine 1.93 H, Glucose 124 H, Magnesium 3.3 H, Total Bilirubin 0.8, AST 34, ALT 33, Alkaline Phosphatase 80, Lipase 60 L Assessment and Plan - Plan Assessment: Sepsis secondary to bilateral pneumonia Acute kidney injury secondary to sepsis, vomiting/dehydration Plan: Sepsis secondary to bilateral pneumonia: SIRS criteria present including tachycardia, tachypnea, leukocytosis source of infection identified with pneumonia. Patient does have acute kidney injury but creatinine is less than 2, lactate is pending as machine is down in the lab currently does not meet criteria for severe sepsis. Blood cultures were obtained prior to administration of antibiotics, patient did not meet criteria for 30 cc/kg IV fluid bolus. Continue with IV antibiotics Rocephin/Zithromax, incentive spirometry, giving her saturations. Acute kidney injury secondary to sepsis, vomiting/dehydration: Continue IV fluids, patient reports is been vomiting last couple of days he denies any diarrhea, he does have some right lower quadrant abdominal pain CT is negative for any acute findings abdomen soft and nontender. Patient also does take meloxicam daily which could be contributing to kidney injury, nephrology co nsult in place. Will obtain renal ultrasound as well. DVT PPX: Heparin Code status: Full Discharge Plan: Home Plan to discharge in: 48 Hours - Advance Directives Does patient have a Living Will: No Does patient have a Durable POA for Healthcare: No - Code Status/Comfort Care Code Status Assessed: Yes (Full code) Critical Care: No Time Spent Managing Pts Care (In Minutes): 70
[2022-05-01] MEDS ORDERED: ACETAMINOPHEN 500 MG TAB PO PRN (22:19)
[2022-05-01] MEDS ORDERED: BENZONATATE 100 MG CAP PO PRN (22:19)
[2022-05-01] MEDS: HEPARIN 5000 UNIT/ML 1 ML VIAL SQ SCH (22:40)
[2022-05-01] MEDS: Ringers Lactate 1,000 ML IV SCH (22:43)
[2022-05-01] MEDS: ONDANSETRON 4 MG/2 ML VIAL IV PRN (22:43)
[2022-05-01 22:51] VITALS: BMI 31.1
[2022-05-01] MEDS ORDERED: SODIUM CHLORIDE 0.9% 10ML INJ IV PRN (23:58)
[2022-05-01] MEDS ORDERED: PROMETHAZINE INJ 25 MG/ML AMP IV PRN (23:59)
[2022-05-02] MEDS: PANTOPRAZOLE 40 MG INJ IVP SCH (00:54)
[2022-05-02 06:30] LABS: Absolute Lymphocytes (CBC) 0.8 K/uL (0.7-4.9); Hematocrit 35.9 % (39.6-49.0); Lymphocytes % 6.5 % (15.3-44.8); MPV 8.3 fL (7.6-11.3)
[2022-05-02 06:50] LABS: Bilirubin Total 0.6 mg/dL (0.2-1.0); Magnesium 2.8 mg/dL (1.8-2.4); Potassium 3.3 mmol/L (3.5-5.1); Protein, Total 7.1 g/dL (6.4-8.2); Thyroid Stimulating Hormone 0.956 uIU/mL (0.360-3.740); Uric Acid 12.3 mg/dL (3.5-7.2)
--- NOTE | 2022-05-02 07:32 | RAD REPORT ---
EXAM DESCRIPTION: US - Renal Ultrasound-Complete - 05/01/2022 11:32 pm CLINICAL HISTORY: bunny COMPARISON: CT-STONE PROTOCOL dated 11/13/2007; Chest Abd Pelvis Wo Con dated 05/01/2022 FINDINGS: Both kidneys are normal in size, shape and echotexture. The right kidney measures 8.6 cm. No hydronephrosis, focal mass or perinephric fluid. The left kidney measures 10.1 cm. No hydronephrosis, focal mass or perinephric fluid. Decompressed bladder. IMPRESSION: Unremarkable renal sonogram. No evidence of hydronephrosis.
[2022-05-02] MEDS ORDERED: PNEUMOCOCCAL VACCINE 0.5 ML IMVAC ONE (08:00)
[2022-05-02] MEDS ORDERED: CEFTRIAXONE 1000 MG/VIAL ONE (09:39)
[2022-05-02] MEDS ORDERED: NA CHLORIDE 0.9% 50 ML ONE (09:41)
[2022-05-02] MEDS: Ringers Lactate 1,000 ML IV SCH (09:44)
[2022-05-02] MEDS: AZITHROMYCIN IV 500 MG in NA CHLORIDE 0.9% 250 ML IVPB SCH (09:45)
[2022-05-02] MEDS: CEFTRIAXONE 1,000 MG in NA CHLORIDE 0.9% 50 ML IVPB SCH (09:45)
[2022-05-02] MEDS: HEPARIN 5000 UNIT/ML 1 ML VIAL SQ SCH ×2 (09:46→20:26)
[2022-05-02] MEDS: ONDANSETRON 4 MG/2 ML VIAL IV PRN (11:02)
[2022-05-02] MEDS ORDERED: NA CHLORIDE 0.9% 1,000 ML IV ONE (12:13)
--- NOTE | 2022-05-02 12:20 | P.CNS ---
Date of Consult: 05/02/22 Reason for Consult: Pneumonia Chief Complaint: Pneumonia, sepsis, SUSHANT History of Present Illness: Patient is a pleasant 67-year-old man who presented to the emergency room with vomiting became acutely short of breath was diagnosed with pneumonia able to keep anything down apparent also admitted with acute renal injury predominantly groundglass changes on the left side he seems to be doing much better prior history of cardiovascular disease or any pulmonary complaints Allergies Sulfa (Sulfonamide Antibiotics) Allergy (Severe, Verified 10/05/12 22:51) Hives/Rash Home Medications: Unobtainable 05/01/22 - Past Medical/Surgical History -: GERD -: Stomach surgery -: ACL Surgery Psychosocial/ Personal History: 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[facility] - Family History Mother Medical History: Cancer Father Medical History: Heart disease Sister Medical History: Heart disease - Social History Alcohol use: Yes CD- Drugs: No Caffeine use: Yes Place of Residence: Home Review of Systems 10-point ROS is otherwise unremarkable Physical Examination Temp Pulse Resp BP Pulse Ox 97.2 F 89 18 145/88 H 91 05/02/22 08:00 05/02/22 08:00 05/02/22 08:00 05/02/22 08:00 05/02/22 08:00 General: Alert, In no apparent distress, Oriented x3 Neck: Supple Respiratory: Clear to auscultation bilaterally Cardiovascular: No edema, Regular rate/rhythm Gastrointestinal: Normal bowel sounds, Non-distended Musculoskeletal: No clubbing, No swelling Integumentary: No rashes, No breakdown Laboratory Data (last 24 hrs) 05/01/22 17:13: PT 14.8 H, INR 1.35 05/01/22 17:13: WBC 15.10 H, Hgb 13.3 L, Hct 42.3, Plt Count 380 05/01/22 17:13: Sodium 149 H, Potassium 3.4 L, BUN 74 H, Creatinine 1.93 H, Glucose 124 H, Magnesium 3.3 H, Total Bilirubin 0.8, AST 34, ALT 33, Alkaline Phosphatase 80, Lipase 60 L - Problems (1) Pneumonia Current Visit: Yes Status: Acute Plan: Patient is 67 years of age admitted with acute onset of nausea vomiting dehydration and acute renal insufficiency he has some groundglass changes on the left side of his lung patient is hyponatremic renal function is improving on IV fluid continue with hypotonic fluids nausea and vomiting has improved White count is declining possible discharge tomorrow Qualifiers: Laterality: left
[2022-05-02] MEDS ORDERED: D5 0.45 NS 1,000 ML IV ONE (12:47)
[2022-05-02] MEDS ORDERED: SIMETHICONE 125 MG TAB PO PRN (13:08)
--- NOTE | 2022-05-02 15:59 | P.PN ---
Date of Service: 05/02/22 Subjective: nausea/vomiting, improved, but not resolved breathing comfortably, mild cough +BM overnight, small ROS: 10 point ROS as noted above, otherwise negative Physical exam GEN: Alert, oriented, NAD HEENT: Normal conjunctiva, sclera anicteric CV: Regular rate and rhythm, no edema Pulm: Nonlabored respirations on room air, diminished bilaterally at bases ABD: Soft, nontender, nondistended Neuro: Normal speech, normal affect Problem List Sepsis secondary to bilateral pneumonia Acute kidney injury secondary to sepsis, vomiting/dehydration GERD pneumonia continue empiric antibiotics bilateral opacities / GGOs on CT possible aspiration from all the vomiting pulm consulted elevated procal SUSHANT, n/v; dehydration improving mild hypernatremia, change fluids nephrology consulted NSAID usage at home as well CT abd/pelvis negative for acute findings possible viral gastroenteritis, already improving advance diet as tolerated does have GERD, no significant change in symptoms lately, accidentlly didn't take PPI for 1 week ~1 month ago, and had flare up of symptoms, but improved ~3- 4 weeks ago. Code: full Dispo: home, ~1-2 days Time Spent Managing Pts Care (In Minutes): 35
[2022-05-02] MEDS: D5 0.45 NS 1,000 ML with POTASSIUM CL 10 MEQ IV SCH ×4 (16:09→21:33)
--- NOTE | 2022-05-02 16:45 | CON ---
Date of Consultation: 05/02/2022 Reason For Consultation: Elevated BUN and creatinine, fluid management. History Of Present Illness: This is a 67-year-old gentleman with significant past medical history of GERD, the patient came to the hospital with nausea and vomiting, no diarrhea for the last few days. Upon arrival to the hospital, workup showed bilateral pneumonia. The patient also found to have michelle vation in BUN and creatinine. For that reason, we have been consulted. The patient denied any singh e in his medication. The patient admits that he has been taking meloxicam for the knee pain for the last 1 month 7.5 mg b.i.d. The patient was started on IV hydration, kidney function started being im proving. Past Medical History: Includes GERD. Allergies: TO SULFA. Family History: Positive for cancer and hypertension, CAD. Social History: Denied smoking, denied drinking, denied drugs abuse. Review of Systems: Head and Neck: No red eye. No ear pain. GI: Has nausea, vomiting. No diarrhea. : No polyuria. No dysuria. No hematuria. [employer]: Not applicable. Respiratory: No shortness of breath. Cardiovascular: No chest pain. Endocrine: No polydipsia. Skin: No rash. Neuro: Generalized weakness. Musculoskeletal: Left knee pain. Physical Examination: General: When I saw the patient, the patient lying in bed, comfortable. Vital Signs: Blood pressure 145/88, pulse of 89, afebrile. Chest: Clear to auscultation. Heart: S1, S2. Regular. Abdomen: Soft, nontender. No guarding or rebound. Extremities: No edema. Neurologic: Alert. No focality. Laboratory Data: Upon presentation; WBC 15.1, H and H 13.3/42.3. Sodium 149, potassium 3.4, bicarb 25, BUN 74, creatinine 1.9, GFR of 38, calcium 9.8, magnesium 3.3. TSH 0.9. Today lab data; sodium 150, potassium 3.3, bicarb 26, BUN 58, creatinine 1.6, GFR of 47, uric acid 12.3, calcium 9, magnesiu m 2.8. Urinalysis; positive for protein. Renal ultrasound; normal size kidney, marginal disproporti on in the kidney size 8.6 and 10.1. Current Medications: The patient on include azithromycin, ceftriaxone, at 100, pantoprazo le. Assessment And Plan: 1.Acute kidney injury, normal size kidney, mostly secondary to prerenal, secondary to GI loss, super imposed with nonsteroidal use, nonoliguric, complicated with hypernatremia and hypokalemia. No signi ficant acidosis. I am going to go ahead and continue IV hydration with the presence of hyponatremia. I am going to change IV fluid to D5 half. We will bolus the patient with 1 L of normal saline. Th en, we will maintain on D5 half. 2.Hypokalemia. We will supplement. Hypomagnesemia has been ruled out. 3.Gastroenteritis as by primary. 4.Pneumonia. Continue current antibiotic dose appropriate. 5.Proteinuria. I am going to quantify the proteinuria and we will follow up. Thank you, Dr. Jones for allowing us to participate in the care of your patient. ZIGGY Voice ID: [id number] Report ID: [id number]
[2022-05-03] MEDS ORDERED: MORPHINE 2 MG/ML SYR IV ONE (01:05)
[2022-05-03] MEDS: PANTOPRAZOLE 40 MG INJ IVP SCH (01:15)
[2022-05-03 04:45] VITALS: O2SAT 96
[2022-05-03 05:46] LABS: Hematocrit 32.2 % (39.6-49.0); Lymphocytes % 13.6 % (15.3-44.8); MCV 77.3 fL (80-100); RBC Red Blood Cell Count 4.16 M/uL (4.33-5.43)
[2022-05-03 06:01] LABS: Albumin 2.7 g/dL (3.4-5.0); Bilirubin Total 0.5 mg/dL (0.2-1.0); Magnesium 2.3 mg/dL (1.8-2.4); Phosphorus 3.2 mg/dL (2.5-4.9); Protein, Total 6.1 g/dL (6.4-8.2)
[2022-05-03 06:04] LABS: Potassium 2.9 mmol/L (3.5-5.1)
[2022-05-03] MEDS: D5 0.45 NS 1,000 ML with POTASSIUM CL 10 MEQ IV SCH ×4 (06:24→13:09)
--- NOTE | 2022-05-03 06:34 | EKG ---
Test Date: 2022-05-01 Test Time: 17:04:33 Intermediate Frame Tender: IQRA MEASUREMENT RESULTS: Intervals: Rate: 108 GA: 148 QRSD: 80 QT: 334 QTc: 447 [place]: P: GA: 148 QRS: 193 T: 169 INTERPRETIVE STATEMENTS: Sinus tachycardia Right superior axis deviation Inferior infarct, age undetermined ST & T wave abnormality, consider lateral ischemia Abnormal ECG Compared to ECG 04/10/1995 10:23:00 Right superior axis now present Myocardial infarct finding now present ST (T wave) deviation now present Possible ischemia now present Sinus rhythm no longer present Electronically Signed On 05-03-22 06:30:44 CRM CONSULTANT by Jeffrey Lewis
[2022-05-03] MEDS: KCL 20 MEQ/100 mL IVPB 20 MEQ/100 ML BAG IV SCH ×3 (07:58→12:00)
[2022-05-03] MEDS: CEFTRIAXONE 1,000 MG in NA CHLORIDE 0.9% 50 ML IVPB SCH (08:00)
[2022-05-03] MEDS: HEPARIN 5000 UNIT/ML 1 ML VIAL SQ SCH (08:01)
[2022-05-03] MEDS: AZITHROMYCIN IV 500 MG in NA CHLORIDE 0.9% 250 ML IVPB SCH (08:50)
--- NOTE | 2022-05-03 12:49 | P.PN ---
Subjective Date of Service: 05/03/22 Chief Complaint: Pneumonia, sepsis, SUSHANT Subjective: Improving (Patient is doing much better denies any nausea vomiting diarrhea) Review of Systems Unremarkable Physical Examination - Vital Signs Temperature: 97.0 F Blood Pressure: 136/73 Pulse: 68 Respirations: 16 Pulse Ox (%): 100 - Physical Exam General: Alert, In no apparent distress, Oriented x3 Neck: Supple Respiratory: Clear to auscultation bilaterally Cardiovascular: No edema, Normal S1 S2 Assessment And Plan - Current Problems (Diagnosis) (1) Pneumonia Current Visit: Yes Status: Acute Plan: Patient admitted with signs and symptoms of pneumonia groundglass changes on the chest x-ray much better discharge on doxycycline low-dose prednisone patient is mildly hypokalemic will need potassium replacement his hyponatremia is corrected renal function is now normal likely resolved prerenal renal ultrasound unremarkable discharge follow-up with me in 2-week Qualifiers: Pneumonia type: due to unspecified organism Laterality: left
[2022-05-03] MEDS ORDERED: POTASSIUM CL 40 MEQ in NA CHLORIDE 0.9% 500 ML IV SCH (15:00)
--- NOTE | 2022-05-03 15:37 | PN ---
Date of Progress Note: 05/03/2022 Subjective: The patient was admitted with acute kidney injury secondary to nonsteroidal use, dehydra tion. The patient apparently used to take diclofenac. The patient feeling much better today after h ydration. Physical Examination: Vital Signs: When I saw the patient; blood pressure of 136/73, pulse of 68, afebrile. Chest: Clear to auscultation. Heart: S1, S2. Regular. Abdomen: Soft, nontender. Extremities: No edema. Laboratory Data: Hemoglobin 10.5. Sodium 144, potassium 2.9, bicarb 26, BUN 30, creatinine 1, GFR o f 75, calcium 8.7, phosphorus 3.2, magnesium 2.3. Current Medications: The patient on include heparin, pantoprazole, simethicone, IV fluid. Assessment And Plan: 1.Acute kidney injury secondary to prerenal, superimposed with nonsteroidal use, diclofenac, recover ed, resolved. I am going to IV fluid and we will monitor. 2.Gastroenteritis, improving. 3.Hypokalemia. We will supplement aggressively and we will follow up. 4.Pneumonia as by primary. 5.Proteinuria. Waiting for the PC ratio. 6.Gastroenteritis as by primary. MAYELIN/PAOLA Voice ID: [id number] Report ID: [id number]
--- NOTE | 2022-05-03 16:49 | P.DS ---
Admission Date: 05/01/22 Discharge Date: 05/03/22 Disposition: ROUTINE DISCHARGE Discharge Condition: GOOD Reason for Admission: Pneumonia, sepsis, SUSHANT Consultations: Pulmonology - Dr. Miranda Brief History of Present Illness: 67-year-old male with history of GERD presents emergency department for vomiting, shortness of breath. Patient reports he started having episodes of vomiting on Saturday, today notes he is feeling quite short of breath. He was evaluated here in the emergency department his labs were significant for leukocytosis, acute kidney injury, elevated procalcitonin chest x-ray showed mild asymmetric pulmonary opacities present greater in the left lung and left lung base which may represent asymmetric pulmonary edema or developing left side infection/pneumonia heart is normal in size. No displaced fractures. CT chest abdomen pelvis without contrast was also obtained which revealed alveolar lung opacities present both lungs greater in the left lower lobe suspicious for infection/pneumonia. Patient meets criteria for sepsis given tachycardia, tachypnea, leukocytosis plus source of infection identified with pneumonia. Hospital Course: Problem List Sepsis secondary to bilateral pneumonia Acute kidney injury secondary to sepsis, vomiting/dehydration GERD Patient presented with nausea/vomiting and not feeling well. Found to have mild bilateral pneumonia and SUSHANT. CT otherwise negative for acute itra-abdominal process. Patient's nausea/vomiting resolved and was tolerating food. He was empirically treated for pneumonia. Pulmonology and nephrology were consulted. Patient had improvement / resolution of his leukocytosis, acute kidney injury, and remained afebrile. Discharged to complete a week of antibiotics and steroids He was noted to be mildly hypokalemic. Nephrology recommended daily 20meq supplementation and repeat blood work in ~1-2 weeks. Follow up: PCP within 1 week Pulmonology - ~1-2 weeks Nephrology ~2-3 weeks Vital Signs/Physical Exam: Temp Pulse Resp BP Pulse Ox 97.0 F 68 16 136/73 100 05/03/22 12:49 05/03/22 12:49 05/03/22 12:49 05/03/22 12:49 05/03/22 12:49 Physical exam GEN: Alert, oriented, NAD HEENT: Normal conjunctiva, sclera anicteric CV: Regular rate and rhythm, no edema Pulm: Nonlabored respirations on room air, diminished bilaterally at bases ABD: Soft, nontender, nondistended Neuro: Normal speech, normal affect Laboratory Data at Discharge: WBC 7.40 K/uL (4.3-10.9) 05/03/22 05:32 Hgb 10.5 g/dL (13.6-17.9) L D 05/03/22 05:32 Hct 32.2 % (39.6-49.0) L 05/03/22 05:32 Plt Count 240 K/uL (152-406) 05/03/22 05:32 PT 14.8 SECONDS (9.5-12.5) H 05/01/22 17:13 INR 1.35 05/01/22 17:13 Sodium 144 mmol/L (136-145) D 05/03/22 05:32 Potassium Cancelled 05/03/22 16:00 BUN 30 mg/dL (7-18) H 05/03/22 05:32 Creatinine 1.09 mg/dL (0.55-1.3) 05/03/22 05:32 Glucose 106 mg/dL (74-106) 05/03/22 05:32 Uric Acid 12.3 mg/dL (3.5-7.2) H 05/02/22 05:46 Phosphorus 3.2 mg/dL (2.5-4.9) 05/03/22 05:32 Magnesium 2.3 mg/dL (1.8-2.4) 05/03/22 05:32 Total Bilirubin 0.5 mg/dL (0.2-1.0) 05/03/22 05:32 AST 29 U/L (15-37) 05/03/22 05:32 ALT 31 U/L (12-78) 05/03/22 05:32 Alkaline Phosphatase 53 U/L (45-117) 05/03/22 05:32 Triglycerides 147 mg/dL (<150) 05/02/22 05:46 Cholesterol 159 mg/dL (<200) 05/02/22 05:46 HDL Cholesterol 38 mg/dL (40-60) L 05/02/22 05:46 Cholesterol/HDL Ratio 4.18 05/02/22 05:46 Lipase 60 U/L (73-393) L 05/01/22 17:13 Home Medications: Calcium Carb/Vitamin D3/Vit K1 [Calcium + D Soft Chewable Tab] 1 each PO BEDTIME 05/02/22 Diclofenac Na [Voltaren D.r*] 75 mg PO BEDTIME 05/02/22 Magnesium Oxide [Mag 0X*] 400 mg PO BEDTIME 05/02/22 Multivit,Ther Iron,Ca,FA & Min [Centrum Tablet*] 1 tab PO BEDTIME 05/02/22 Rabeprazole Sodium [Aciphex] 20 mg PO BEDTIME 05/02/22 Zinc Gluconate [Zinc] 50 mg PO BEDTIME 05/02/22 Amox/Clavulanate [Augmentin 875-125 Tab] 1 each PO BID 7 Days #14 tab 05/03/22 Azithromycin [Zithromax] 250 mg PO DAILY 4 Days #4 tab 05/03/22 Potassium Chloride [Klor-Con M20] 20 meq PO DAILY 14 Days #14 tab 05/03/22 predniSONE [Deltasone*] 10 mg PO BID 7 Days #14 tab 05/03/22 New Medications: Amox/Clavulanate [Augmentin 875-125 Tab] 1 each PO BID 7 Days #14 tab predniSONE [Deltasone*] 10 mg PO BID 7 Days #14 tab Potassium Chloride [Klor-Con M20] 20 meq PO DAILY 14 Days #14 tab Azithromycin [Zithromax] 250 mg PO DAILY 4 Days #4 tab Physician Discharge Instructions: Patient presented with nausea/vomiting and not feeling well. Found to have mild bilateral pneumonia and SUSHANT. CT otherwise negative for acute itra-abdominal process. Patient's nausea/vomiting resolved and was tolerating food. He was empirically treated for pneumonia. Pulmonology and nephrology were consulted. Patient had improvement / resolution of his leukocytosis, acute kidney injury, and remained afebrile. Discharged to complete a week of antibiotics and steroids He was noted to be mildly hypokalemic. Nephrology recommended daily 20meq supplementation and repeat blood work in ~1-2 weeks. Follow up: PCP within 1 week Pulmonology - ~1-2 weeks Nephrology ~2-3 weeks Followup: Junior Goel MD [ACTIVE - CAN ADMIT] - 1-2 Weeks (follow up in 2 weeks, have chemistry lab drawn 2 days prior ) Rai Goodrich DO, DO [Primary Care Provider] - 1 Week (call to schedule an appointment, have chemistry lab drawn) Time spent managing pt's care (in minutes): 45
[2022-05-03 17:07] VITALS: BP 125/71; TEMP 97.2
[2022-05-06 14:56] LABS: Albumin, (SPE) 2.8 g/dL (3.8-4.8); Alpha-1-Globulins 0.4 g/dL (0.2-0.3); Alpha-2-Globulins 0.9 g/dL (0.5-0.9); Gamma Globulins 0.7 g/dL (0.8-1.7); INTERPRETATION REPORT
== END 2022-05-03 17:26 | disposition home or self-care (01) | DRG 871 ==
LOC: ER 16:34 → ERHOLD 19:51 → 2ND 21:19
PROVIDERS: ADMIT Hospitalist; ATTEND Hospitalist
DX: A41.9 Sepsis, unspecified organism (principal); J18.9 Pneumonia, unspecified organism; N17.9 Acute kidney failure, unspecified; E87.1 Hypo-osmolality and hyponatremia; E87.0 Hyperosmolality and hypernatremia; E86.0 Dehydration; E87.6 Hypokalemia; K52.9 Noninfective gastroenteritis and colitis, unspecified; K21.9 Gastro-esophageal reflux disease without esophagitis; R80.9 Proteinuria, unspecified; Z88.1 Allergy status to other antibiotic agents; Z79.52 Long term (current) use of systemic steroids; Z79.899 Other long term (current) drug therapy; Z20.822 Contact with and (suspected) exposure to COVID-19
CPT/HCPCS: 0241U; 36415; 71045; 71250; 74176; 76770; 80048; 80053; 80061; 80069; 80076; 81003; 81015; 82550; 83605; 83690; 83735; 83880; 84132; 84145; 84165; 84439; 84443; 84484; 84550; 85025; 85610; 87040; 93005; 94010; 96361; 96365; 96367; 96375; 99285; C9113; J0456; J1644; J2270; J2405; J2550; J3480; J7030; J7040; J7050; J7120; J7799

== ENCOUNTER 2023-05-01 11:29 | Emergency (ER) | payer BC, OTHER ==
--- OUTSIDE RECORDS SUMMARY | 2023-05-01 11:33 | XMS REPORT | Continuity of Care Document ---
:1955 Author Organization [facility] t Address [address] [place] [address] Care Team Providers Name Role Phone Lab, Adc Fam Pob I Attending Clinician Unavailable Judy Chau Attending Clinician JUDY DICKINSON Attending Clinician Unavailable Ivelisse Sigala Attending Clinician Troy Garcia Attending Clinician TROY HARDING Attending Clinician Unavailable Payers Payer Name Policy Type Policy Number Effective Date Expiration Date Mulu mckinney [employer] [place] 6 [id number] Common Spiri t [facility] Problems Condition Condition Condition Status Onset Resolution Last Treating Co mments Source Name Details Category Date Date Treatment Clinician Date [id number] Primary Problem Comm on osteoarthr [facility] itis [facility] left knee [facility] [id number] [place], [place] [id number] joint, [facility] [id number] Arthritis Problem Co mmon [id number] of knee, [facility] Allergies, Adverse Reactions, Alerts Allergy Allergy Status Severity Reaction(s) Onset Inactive Treating Comm ents Source Name Type Date Date Clinician Sulfona Sulfona Active Unknown Commo n mide mide [facility] (substan (substan - [facility] ce) ce) [facility] NO KNOWN Drug Active [facility] ALLERGIE Class ity [facility] Social History Social Habit Start Date Stop Date Quantity Comments Source Sex Assigned At Com [facility] History of Tobacco Use Co mmon [facility] Smoking Status Start Date Stop Date Source Unknown if ever smoked [facility] Former Smoker 2022-07-02 00:00:00 2022-07-02 00:00:00 [facility] nter Medications Ordered Filled Start Stop Current Ordering Indication Dosage Frequency Signature Comments Components Source Medication Medication Date Date Medication? Clinician (SIG) Name Name Lidocaine Lidocaine No 10mg Com 07-02 Spirit 00:00: - [facility] Kenalog Kenalog No 40mg Common (Triamcinol (Triamcinol 07-02 S pirit one) one) 00:00: - [facility] Diclofenac Diclofenac No Diclofenac Sodium 75 Sodium 75 Sodium 75 MG MG MG Losartan Losartan No Losartan Potassium Potassium Potassium Zolpidem Zolpidem No Zolpidem Tartrate 10 Tartrate 10 Tartrate MG MG 10 MG Vital Signs Vital Name Observation Time Observation Value Comments Source height 2022-07-02 08:00:00 65 [in_i] [facility] weight 2022-07-02 08:00:00 230 [lb_av] [facility] temperature 2022-07-02 08:00:00 98.0 [degF] [facility] bmi 2022-07-02 08:00:00 38.27 kg/m2 [facility] blood pressure 2022-07-02 08:00:00 138 mm[Hg] [facility] - systolic [facility] blood pressure 2022-07-02 08:00:00 88 mm[Hg] Common [facility] - diastolic [facility] Procedures This patient has no known procedures. Encounters Start End Encounter Admission Attending Care Care Encounter Source Date/Time Date/Time Type Type Clinicians Facility Department ID 2022-07-02 Outpatient [facility] [id number] Common 07:51:00 [id number] [facility] 2022-06-21 Outpatient [facility] [id number] Common 09:34:02 [facility] 2022-06-20 Outpatient [facility] [id number] Common 11:18:01 [facility] 2021-07-19 Outpatient [facility] [id number] Common 14:31:02 [facility] 2022-07-02 2022-07-02 [facility] [id number] Co mmon 00:00:00 00:00:00 VISIT EST Spir it PT LEVEL 3 [facility] 2021-01-23 2021-01-23 Laboratory Lab, Adc Fam Pob I [facility] [id number] Univers 09:54:24 10:14:24 Only Teena [facility] [id number] ity [place] [id number] Иван as Professio [phone] [address] Office [facility] 2021-01-23 2021-01-23 [facility] [id number] Univers 10:00:00 10:00:00 JUDY mueller o f [facility] 2019-12-20 2019-12-20 [facility] [id number] 00:00:00 00:00:00 [facility] [id number] [place] [id number] Professio [phone] [place] [address] [address] 2019-12-20 2019-12-20 [facility] [id number] [facility] 00:00:00 00:00:00 Ivelisse Health [id number] it y [facility] [place] [id number] Иван as Professio [phone] [address] Office [address] 2019-12-19 2019-12-19 Laboratory Lab, [facility] [id number] 09:25:55 09:45:55 Only [facility] Pob I Health [id number] [place] [id number] Professio [phone] [place] [address] [address] 2019-12-19 2019-12-19 Laboratory Lab, [facility] Fam Pob I [facility] 1.2. [id number] [facility] 09:25:55 09:45:55 Only Troy Harding [facility] [id number] ity [facility] [id number] Иван as Professio [phone] [place] d[place] [address] Branch Office [address] 2019-12-19 2019-12-19 Outpatient R MEAGHAN [facility] [id number] [facility] 09:40:00 09:40:00 TROY itdenilson [facility] Results This patient has no known results.
--- NOTE | 2023-05-01 12:31 | RAD REPORT ---
EXAM DESCRIPTION: RAD - Chest Pa And Lat (2 Views) - 05/01/2023 12:22 pm CLINICAL HISTORY: COUGH COMPARISON: Abdomen 1 View (KUB) dated 04/29/2023; Chest Pa And Lat (2 Views) dated 04/29/2023; Chest Pa And Lat (2 Views) dated 05/21/2022; Chest Single View dated 05/01/2022 TECHNIQUE: PA and lateral views of the chest were obtained. FINDINGS: The lungs are clear. Heart size is normal and central vasculature is within normal limits. No pleural effusion or pneumothorax seen. No acute bony finding noted. IMPRESSION: No acute cardiopulmonary process.
[2023-05-01 12:37] LABS: Absolute Lymphocytes (CBC) 1.1 K/uL (0.7-4.9); Hematocrit 35.8 % (39.6-49.0); Lymphocytes % 10.8 % (15.3-44.8); MCV 77.2 fL (80-100); Platelets 313 thou/uL (152-406); RBC Red Blood Cell Count 4.64 M/uL (4.33-5.43)
[2023-05-01 12:45] LABS: Albumin 3.2 g/dL (3.4-5.0); Bilirubin Total 0.4 mg/dL (0.2-1.0); Protein, Total 7.4 g/dL (6.4-8.2)
[2023-05-01 13:13] LABS: Urine Bacteria <20 /HPF (<20); Urine Bilirubin NEGATIVE (Negative); Urine Blood Negative (Negative); Urine Clarity Extremely Turbid (Clear); Urine Color Yellow (Yellow); Urine Glucose NEGATIVE (Negative); Urine Mucus 4+ /HPF (None Seen); Urine Protein 1+ (Negative); Urine Urobilinogen 1+ (Normal)
[2023-05-01 13:18] LABS: Specific Gravity > 1.030 (1.005-1.030)
--- NOTE | 2023-05-01 13:40 | RAD REPORT ---
EXAM DESCRIPTION: CTAbdomen Pelvis W Contrast - 05/01/2023 12:59 pm CLINICAL HISTORY: Abdominal pain. NAUSEA / VOMITING COMPARISON: Abdomen 1 View (KUB) dated 04/29/2023; Chest Abd Pelvis Wo Con dated 05/01/2022 TECHNIQUE: Biphasic CT imaging of the abdomen and pelvis was performed with 100 ml non-ionic IV cont rast. All CT scans are performed using dose optimization technique as appropriate and may include automated exposure control or mA/KV adjustment according to patient size. FINDINGS: Mild ground-glass opacities in both lung bases, nonspecific.Postsurgical changes are seen involving the stomach with a small hiatal hernia. There is a mild distention with food stuff of both visualized stomach cavities. The liver, spleen, pancreas, adrenal glands and kidneys are within normal limits. Cholecystectomy cli ps. No bowel obstruction, free air, free fluid or abscess. Sigmoid diverticulosis coli is present without findings to indicate diverticulitis. The appendix is normal. No evidence of significant lymphadenop athy. No suspicious bony findings. IMPRESSION: Postsurgical changes are present about the stomach. Is difficult to exactly ascertain wi th surgical procedure was performed correlation with surgical history is advised. Within two distinct appearing surgically created stomach cavities there is moderate food stuff and distention noted. Sigmoid diverticulosis coli without diverticulitis.
--- NOTE | 2023-05-01 13:53 | EDPHYS ---
Physician Documentation [facility] Name: Luca Ayon Age: 68 yrs Sex: Male : 1955 Arrival Date: 05/01/2023 Time: 11:29 Bed 11 Private MD: ED Physician Kp Ricks HPI: 05/01 11:56 This 68 yrs old Male presents to ER via Ambulatory with complaints of Vomiting, Cough. ms3 11:56 68-year-old male with past medical history of GERD, hypertension presents to the [facility] department for vomiting, cough that has been ongoing for 2 to 3 days. Patient states over the last week he has lost 15 pounds. Patient denies abdominal pain, fevers, chills. Patient endorses nausea, vomiting, diarrhea. Patient denies alleviating or inciting factors. Historical: - Allergies: 11:42 Sulfa (Sulfonamide Antibiotics); iw - PMHx: 11:42 GERD; iw ROS: 11:56 Constitutional: Negative for fever, and chills. Cardiovascular: Negative for chest ms3 pain, and palpitations. 11:56 MS/Extremity: Negative for injury and deformity, Skin: Negative for injury, rash, and discoloration, 11:56 Respiratory: Positive for cough, 11:56 Abdomen/GI: Positive for nausea, vomiting, and diarrhea, Exam: 11:56 Constitutional: This is a well developed, well nourished patient who is awake, alert, ms3 and in no acute distress. Head/Face: Normocephalic, atraumatic. Neck: Trachea midline, no cervical lymphadenopathy. Supple, full range of motion without nuchal rigidity, or vertebral point tenderness. No Meningismus. Chest/axilla: Normal chest wall appearance and motion. Nontender with no deformity. Cardiovascular: Regular rate and rhythm with a normal S1 and S2. No gallops, murmurs, or rubs. Normal PMI, no JVD. No pulse deficits. Respiratory: Lungs have equal breath sounds bilaterally, clear to auscultation and percussion. No rales, rhonchi or wheezes noted. No increased work of breathing, no retractions or nasal flaring. Abdomen/GI: Soft, non-tender, with normal bowel sounds. No distension or tympany. No guarding or rebound. No evidence of tenderness throughout. Skin: Warm, dry with normal turgor. Normal color with no rashes, no lesions, and no evidence of cellulitis. MS/ Extremity: Pulses equal, no cyanosis. Neurovascular intact. Full, normal range of motion. Vital Signs: 11:40 BP 117 / 68; Pulse 95; Resp 16; Temp 98.2; Pulse Ox 99% on R/A; Weight 78.02 kg; Height iw 5 ft. 8 in. ; 11:40 Body Mass Index 26.15 (78.02 kg, 172.72 cm) iw MDM: 11:55 Patient medically screened. ms3 11:56 Differential diagnosis: Nonspecific abd pain, Pneumonia vs Cancer. ms3 16:59 Data reviewed: vital signs, nurses notes, lab test result(s), radiologic studies, and ms3 as a result, I will discharge patient. Counseling: I had a detailed discussion with the patient and/or guardian regarding the historical points, exam findings, and any diagnostic results supporting the discharge/admit diagnosis, lab results, radiology results, the need for outpatient follow up, to return to the emergency department if symptoms worsen or persist or if there are any questions or concerns that arise at home. Special discussion: I discussed with the patient/guardian in detail that at this point there is no indication for admission to the hospital. It is understood, however, that if the symptoms persist or worsen the patient needs to return immediately for re-evaluation. 05/01 11:56 Order name: CBC with Diff; Complete Time: 13:41 ms3 05/01 11:56 Order name: CMP; Complete Time: 13:41 ms3 05/01 11:56 Order name: Lipase; Complete Time: 13:41 ms3 05/01 11:56 Order name: Urinalysis w/ reflexes; Complete Time: 13:41 ms3 05/01 11:56 Order name: CT Abd/Pelvis - IV Contrast Only; Complete Time: 13:41 ms3 05/01 11:56 Order name: Chest Pa And Lat (2 Views) XRAY; Complete Time: 13:41 ms3 05/01 11:56 Order name: IV Saline Lock; Complete Time: 12:41 ms3 05/01 11:56 Order name: Labs collected and sent; Complete Time: 12:41 ms3 Administered Medications: No medications were administered Disposition: 17:25 Chart complete. ms3 Disposition Summary: 05/01/23 13:52 Discharge Ordered Notes: Location: Home ms3 Condition: Stable ms3 Diagnosis - Vomiting ms3 - Abnormal weight loss ms3 Followup: ms3 - With: Private Physician - When: 2 - 3 days - Reason: Recheck today's complaints Discharge Instructions: - Discharge Summary Sheet ms3 - Vomiting, Adult ms3 Forms: - Medication Reconciliation Form ms3 - Thank You Letter ms3 - Antibiotic Education ms3 - Prescription Opioid Use ms3 - Patient Portal Instructions ms3 - Leadership Thank You Letter ms3 Prescriptions: - ondansetron 4 mg Oral Tablet,disintegrating - take 1 tablet ORAL route every 8 hours; 15 tablet; Refills: 0, Product ms3 Selection Permitted Signatures: Dispatcher [employer] Rosy Tubbs RN RN Kp Cheema, DO DO ms3
--- NOTE | 2023-05-01 13:53 | ER ---
Nurse's Notes [facility] Name: Luca Ayon Age: 68 yrs Sex: Male : 1955 Arrival Date: 05/01/2023 Time: 11:29 Bed 11 Private MD: Diagnosis: Vomiting;Abnormal weight loss Presentation: 05/01 11:40 Chief complaint: Patient states: was seen by Dr. Goodrich on Saturday and had labs drawn and iw was told he has some type of infection but does not know where, he has been vomiting, coughing X 2 days, lost 15 pounds in last 3 weeks. Coronavirus screen: At this time, the client does not indicate any symptoms associated with coronavirus-19. Ebola Screen: Patient negative for fever greater than or equal to 101.5 degrees Fahrenheit, and additional compatible Ebola Virus Disease symptoms Patient denies exposure to infectious person. Patient denies travel to an Ebola-affected area in the 21 days before illness onset. No symptoms or risks identified at this time. Initial Sepsis Screen: Does the patient meet any 2 criteria? No. Patient's initial sepsis screen is negative. Does the patient have a suspected source of infection? No. Patient's initial sepsis screen is negative. Risk Assessment: Do you want to hurt yourself or someone else? Patient reports no desire to harm self or others. Onset of symptoms was April 29, 2023. 11:40 Method Of Arrival: Ambulatory iw 11:43 Acuity: HAIR 3 iw Triage Assessment: 11:44 General: Appears in no apparent distress. Behavior is calm, cooperative. Pain: Denies iw pain. Neuro: Level of Consciousness is awake, alert, obeys commands, Oriented to person, place, time, situation. Respiratory: Respiratory effort is even, unlabored, Respiratory pattern is regular. GI: Reports vomiting. Historical: - Allergies: 11:42 Sulfa (Sulfonamide Antibiotics); iw - PMHx: 11:42 GERD; iw Vital Signs: 11:40 BP 117 / 68; Pulse 95; Resp 16; Temp 98.2; Pulse Ox 99% on R/A; Weight 78.02 kg; Height iw 5 ft. 8 in. ; 11:40 Body Mass Index 26.15 (78.02 kg, 172.72 cm) iw ED Course: 11:33 Patient arrived in ED. gm2 11:34 Kp Ricks DO is Attending Physician. ms3 11:40 Arm band placed on. iw 11:43 Triage completed. iw 11:45 Inserted saline lock: 20 gauge in left antecubital area, using aseptic technique. Blood bc6 collected. 12:21 Chest Pa And Lat (2 Views) XRAY In Process Unspecified. EDMS 12:41 CBC with Diff Sent. bc6 12:41 CMP Sent. bc6 12:41 Lipase Sent. bc6 12:41 Urinalysis w/ reflexes Sent. bc6 13:00 CT Abd/Pelvis - IV Contrast Only In Process Unspecified. EDMS 13:24 Rosy Jarvis, RN is Primary Nurse. iw Administered Medications: No medications were administered Outcome: 13:52 Discharge ordered by . ms3 14:14 Patient left the ED. iw Signatures: Dispatcher [employer] EDMS Rosy Jarvis, RN RN iw Kp Ricks DO DO ms3 Marisela Beyer bc6 Kyleigh Ramirez gm2
[2023-05-01 14:18] VITALS: BP 117/68; TEMP 98.2; O2SAT 99
== END 2023-05-01 14:14 | disposition home or self-care (01) ==
LOC: ER 11:29
DX: R11.10 Vomiting, unspecified (principal); R63.4 Abnormal weight loss; K21.9 Gastro-esophageal reflux disease without esophagitis; Z88.2 Allergy status to sulfonamides
CPT/HCPCS: 85025; 81001; 36415; 83690; 80053; 74177; 71046; 99283; Q9967